=== PATIENT | female | born 1970 | race Caucasian/White ===

== ENCOUNTER 2018-07-23 12:15 | Emergency (ER) | payer BC, MEDICAID ==
[~2018-07-23] VITALS: Ht 162.6 cm; Wt 105.2 kg
[~2018-07-23 12:15] MED LIST: BENZ-51 PO; LITH300T PO; OLAN10TA3 PO; OMEP20 PO; PRED20 PO; SIMV-260 PO
[2018-07-23] MEDS ORDERED: PANT40TA25 PO (12:41)
[2018-07-23] MEDS ORDERED: QUET100T PO (12:41)
[2018-07-23] MEDS ORDERED: BENZ1TAB10 PO (12:41)
[2018-07-23] MEDS ORDERED: LORA1TAB3 PO (12:41)
[2018-07-23] MEDS ORDERED: HALO10 PO (12:41)
[2018-07-23] MEDS ORDERED: PARO10TA89 PO (12:41)
[2018-07-23 12:55] LABS: BASOPHILS % (AUTO) 0.8 % (0.0-2.0); EOSINOPHILS % (AUTO) 1.4 % (1.0-6.0); HEMATOCRIT 35.3 % (36-46); HEMOGLOBIN 12.1 g/dL (12.0-16.0); LYMPHOCYTES % (AUTO) 52.2 % (22.0-44.0); MEAN CORPUSCULAR HEMOGLOBIN 33.1 pg (26.0-34.0); MEAN CORPUSCULAR HGB CONC 34.1 G/dL (31.0-37.0); MEAN CORPUSCULAR VOLUME 97 fL (80-100); MONOCYTES # (AUTO) 0.4 K/uL (0.1-1.0); MONOCYTES % (AUTO) 10.5 % (2.0-9.0); NEUTROPHILS # (AUTO) 1.3 K/uL (1.8-7.7); NEUTROPHILS % (AUTO) 35.1 % (40.0-70.0); PLATELET COUNT (AUTO) 191 K/uL (150-450); RED BLOOD CELL COUNT(AUTO) 3.65 MIL/uL (4.00-5.20); RED CELL DISTRIBUTION WIDTH 13.8 % (11.5-14.5)
[2018-07-23 13:06] LABS: ANION GAP 4 mmol/L (8-16); CALCIUM, TOTAL 8.2 mg/dL (8.8-10.5); CARBON DIOXIDE 32 mmol/L (22-29); CHLORIDE 101 mmol/L (98-107); CREATININE 0.77 mg/dL (0.60-1.30); GLOMERULAR FILTR. RATE CALC > 60 mL/min (>60); GLUCOSE,RANDOM 90 mg/dL (70-110); POTASSIUM 4.6 mmol/L (3.5-5.1); SODIUM SERUM 137 mmol/L (136-145); UREA NITROGEN, BLOOD 12 mg/dL (7-18)
[2018-07-23 13:14] LABS: ALANINE AMINOTRANSFERASE 18 U/L (12-78); ALBUMIN 3.2 g/dL (3.4-5.0); ALKALINE PHOSPHATASE 68 U/L (46-116); ASPARTATE AMINOTRANSFERASE 12 U/L (15-37); BILIRUBIN,TOTAL 0.2 mg/dL (0.1-1.0); TOTAL PROTEIN, SERUM 6.8 g/dL (6.4-8.2)
[2018-07-23 15:18] VITALS: BP 126/72
== END 2018-07-23 15:25 | disposition home or self-care (01) ==
LOC: EMS 12:16
DX: F20.9 Schizophrenia, unspecified (principal); F31.9 Bipolar disorder, unspecified; F17.210 Nicotine dependence, cigarettes, uncomplicated; Z88.8 Allergy status to other drugs, medicaments and biological substances
CPT/HCPCS: 36415; 80053; 85025; 99284; 99406; G0480

== ENCOUNTER 2018-12-15 13:01 | Inpatient (IN) | payer BC, MEDICARE ==
[~2018-12-15] VITALS: Ht 162.6 cm; Wt 107.5 kg
[~2018-12-15 13:01] MED LIST changes: -BENZ-51 PO; +BENZ1TAB10 PO; +HALO10 PO; -LITH300T PO; +LORA1TAB3 PO; -OLAN10TA3 PO; -OMEP20 PO; +PANT40TA25 PO; +PARO10TA89 PO; -PRED20 PO; +QUET100T PO; -SIMV-260 PO
[2018-12-15 14:40] LABS: BASOPHILS % (AUTO) 0.5 % (0.0-2.0); EOSINOPHILS % (AUTO) 1.9 % (1.0-6.0); HEMATOCRIT 37.9 % (36-46); HEMOGLOBIN 12.6 g/dL (12.0-16.0); LYMPHOCYTES # (AUTO) 1.9 K/uL (1.0-4.8); LYMPHOCYTES % (AUTO) 52.5 % (22.0-44.0); MEAN CORPUSCULAR HEMOGLOBIN 33.3 pg (26.0-34.0); MEAN CORPUSCULAR HGB CONC 33.3 G/dL (31.0-37.0); MEAN CORPUSCULAR VOLUME 100 fL (80-100); MONOCYTES # (AUTO) 0.4 K/uL (0.1-1.0); NEUTROPHILS # (AUTO) 1.2 K/uL (1.8-7.7); NEUTROPHILS % (AUTO) 35.1 % (40.0-70.0); PLATELET COUNT (AUTO) 207 K/uL (150-450); RED CELL DISTRIBUTION WIDTH 13.2 % (11.5-14.5)
[2018-12-15 14:46] LABS: ANION GAP 5 mmol/L (8-16); CALCIUM, TOTAL 8.8 mg/dL (8.8-10.5); CARBON DIOXIDE 31 mmol/L (22-29); CHLORIDE 103 mmol/L (98-107); CREATININE 0.82 mg/dL (0.60-1.30); GLOMERULAR FILTR. RATE CALC > 60 mL/min (>60); GLUCOSE,RANDOM 104 mg/dL (70-110); POTASSIUM 4.6 mmol/L (3.5-5.1); SODIUM SERUM 139 mmol/L (136-145); UREA NITROGEN, BLOOD 16 mg/dL (7-18)
[2018-12-15 14:53] LABS: ALANINE AMINOTRANSFERASE 17 U/L (12-78); ALBUMIN 3.4 g/dL (3.4-5.0); ALKALINE PHOSPHATASE 64 U/L (46-116); ASPARTATE AMINOTRANSFERASE 14 U/L (15-37); BILIRUBIN,TOTAL 0.2 mg/dL (0.1-1.0); TOTAL PROTEIN, SERUM 7.1 g/dL (6.4-8.2)
[2018-12-15] MEDS ORDERED: LORazepam 2 MG TABLET PO ONE (16:15)
[2018-12-15] MEDS ORDERED: HALOPERIDOL 5 MG TABLET PO ONE (16:15)
[2018-12-15] MEDS ORDERED: ZOLPIDEM TARTRATE 10 MG TABLET PO PRN (17:00)
[2018-12-15] MEDS ORDERED: IBUPROFEN 400 MG TABLET PO PRN ×2 (17:15→20:30)
[2018-12-15] MEDS ORDERED: ACETAMINOPHEN 325 MG TABLET PO PRN ×2 (17:15→20:30)
[2018-12-15 17:28] LABS: AMPHET/METH SCREEN,URINE NEGATIVE (NEGATIVE); BARBITURATE SCREEN, URINE NEGATIVE (NEGATIVE); BENZODIAZEPINES SCREEN,URINE NEGATIVE (NEGATIVE); CANNABINOID SCREEN,URINE NEGATIVE (NEGATIVE); COCAINE SCREEN,URINE NEGATIVE (NEGATIVE); METHADONE SCREEN, URINE NEGATIVE (NEGATIVE); OPIATE SCREEN,URINE NEGATIVE (NEGATIVE); PHENCYCLIDINE SCREEN,URINE NEGATIVE (NEGATIVE)
[2018-12-15] MEDS ORDERED: MAGNESIUM HYDROXIDE SUSPENSION 30 ML UDCUP PO PRN (20:30)
[2018-12-15] MEDS ORDERED: LOPERAMIDE HCL 2 MG CAPSULE PO PRN (20:30)
[2018-12-15] MEDS ORDERED: PETROLATUM,WHITE 28 GM JELLY TP PRN (20:30)
[2018-12-15] MEDS ORDERED: CloNIDine HCL 0.1 MG TABLET PO PRN (20:30)
[2018-12-15] MEDS ORDERED: DOCUSATE SODIUM 100 MG CAPSULE PO PRN (20:30)
[2018-12-15 20:39] VITALS: BP 119/78
[2018-12-16 00:31] VITALS: BP 123/81
[2018-12-16] MEDS: NICOTINE 7 MG/24 HOUR PATCH TD SCH (08:10)
[2018-12-16 08:22] VITALS: BP 104/69
[2018-12-16 08:52] LABS: BASOPHILS % (AUTO) 0.8 % (0.0-2.0); EOSINOPHILS % (AUTO) 2.2 % (1.0-6.0); HEMATOCRIT 42.4 % (36-46); HEMOGLOBIN 14.1 g/dL (12.0-16.0); LYMPHOCYTES % (AUTO) 58.1 % (22.0-44.0); MEAN CORPUSCULAR HEMOGLOBIN 33.2 pg (26.0-34.0); MEAN CORPUSCULAR HGB CONC 33.2 G/dL (31.0-37.0); MEAN CORPUSCULAR VOLUME 100 fL (80-100); MONOCYTES # (AUTO) 0.3 K/uL (0.1-1.0); MONOCYTES % (AUTO) 9.4 % (2.0-9.0); NEUTROPHILS % (AUTO) 29.5 % (40.0-70.0); PLATELET COUNT (AUTO) 243 K/uL (150-450); RED BLOOD CELL COUNT(AUTO) 4.25 MIL/uL (4.00-5.20); RED CELL DISTRIBUTION WIDTH 12.9 % (11.5-14.5)
[2018-12-16 09:29] LABS: ALANINE AMINOTRANSFERASE 20 U/L (12-78); ALBUMIN 3.6 g/dL (3.4-5.0); ALKALINE PHOSPHATASE 69 U/L (46-116); ANION GAP 8 mmol/L (8-16); ASPARTATE AMINOTRANSFERASE 16 U/L (15-37); BILIRUBIN,TOTAL 0.3 mg/dL (0.1-1.0); CALCIUM, TOTAL 9.1 mg/dL (8.8-10.5); CARBON DIOXIDE 30 mmol/L (22-29); CHLORIDE 101 mmol/L (98-107); CHOL/HDL RATIO 6.4 (3.9-5.7); CHOLESTEROL 281 mg/dL (131-200); CREATININE 0.78 mg/dL (0.60-1.30); GLOMERULAR FILTR. RATE CALC > 60 mL/min (>60); GLUCOSE,RANDOM 129 mg/dL (70-110); HDL CHOLESTEROL 44 mg/dL (40-60); LDL CHOL (CALC.) 182 mg/dL (0-130); POTASSIUM 4.5 mmol/L (3.5-5.1); SODIUM SERUM 139 mmol/L (136-145); THYROID STIMULATING HORMONE 1.94 uIU/mL (0.36-3.74); TOTAL PROTEIN, SERUM 7.8 g/dL (6.4-8.2); TRIGLYCERIDES 277 mg/dL (15-150); UREA NITROGEN, BLOOD 14 mg/dL (7-18)
[2018-12-16 09:44] LABS: HEMOGLOBIN A1C 5.5 % (4.5-6.2)
[2018-12-16 16:35] VITALS: BP 118/83
[2018-12-16] MEDS: BENZTROPINE MESYLATE 2 MG TABLET PO SCH (20:46)
[2018-12-16] MEDS: HALOPERIDOL 10 MG TABLET PO SCH (20:46)
[2018-12-17 03:26] VITALS: BP 110/73
[2018-12-17 08:17] VITALS: BP 142/75
[2018-12-17] MEDS: NICOTINE 7 MG/24 HOUR PATCH TD SCH (08:27)
[2018-12-17] MEDS: OMEGA-3/DHA/EPA/FISH OIL 1,000 MG CAPSULE PO SCH (10:30)
[2018-12-17 12:04] VITALS: BP 113/68
[2018-12-17] MEDS: LORazepam 2 MG TABLET PO PRN (12:40)
[2018-12-17] MEDS: HALOPERIDOL 5 MG TABLET PO PRN (13:16)
[2018-12-17 16:16] VITALS: BP 117/73
[2018-12-17] MEDS: HALOPERIDOL 10 MG TABLET PO SCH (20:20)
[2018-12-17] MEDS: BENZTROPINE MESYLATE 2 MG TABLET PO SCH (20:20)
[2018-12-18 04:27] VITALS: BP 119/67
[2018-12-18] MEDS: HALOPERIDOL 5 MG TABLET PO PRN (08:18)
[2018-12-18] MEDS: NICOTINE 7 MG/24 HOUR PATCH TD SCH (08:18)
[2018-12-18 08:24] VITALS: BP 95/72
[2018-12-18] MEDS: OMEGA-3/DHA/EPA/FISH OIL 1,000 MG CAPSULE PO SCH (08:24)
[2018-12-18 10:12] VITALS: BP 107/62
[2018-12-18] MEDS: LORazepam 2 MG TABLET PO PRN ×2 (14:18→19:52)
[2018-12-18 16:17] VITALS: BP 108/62
[2018-12-18] MEDS: MAG HYDROX/AL HYDROX/SIMETH ES 30 ML SUSPENSION UDCUP PO PRN (18:37)
[2018-12-18] MEDS: BENZTROPINE MESYLATE 2 MG TABLET PO SCH (20:24)
[2018-12-18] MEDS: SIMVASTATIN 10 MG TABLET PO SCH (20:24)
[2018-12-18] MEDS: HALOPERIDOL 10 MG TABLET PO SCH (20:24)
[2018-12-19 07:05] VITALS: BP 107/56
[2018-12-19 08:08] VITALS: BP 113/65
[2018-12-19] MEDS: MAG HYDROX/AL HYDROX/SIMETH ES 30 ML SUSPENSION UDCUP PO PRN (08:18)
[2018-12-19] MEDS: NICOTINE 7 MG/24 HOUR PATCH TD SCH (08:19)
[2018-12-19] MEDS: OMEGA-3/DHA/EPA/FISH OIL 1,000 MG CAPSULE PO SCH (08:19)
[2018-12-19] MEDS: HALOPERIDOL 5 MG TABLET PO PRN (11:40)
[2018-12-19 16:06] VITALS: BP 108/66
[2018-12-19] MEDS: BENZTROPINE MESYLATE 2 MG TABLET PO SCH (20:04)
[2018-12-19] MEDS: HALOPERIDOL 10 MG TABLET PO SCH (20:04)
[2018-12-19] MEDS: SIMVASTATIN 10 MG TABLET PO SCH (20:05)
[2018-12-19] MEDS: LORazepam 2 MG TABLET PO PRN (20:42)
[2018-12-20 02:38] VITALS: BP 127/63
[2018-12-20 08:00] VITALS: BP 118/79
[2018-12-20] MEDS: NICOTINE 7 MG/24 HOUR PATCH TD SCH (08:31)
[2018-12-20] MEDS: OMEGA-3/DHA/EPA/FISH OIL 1,000 MG CAPSULE PO SCH (08:31)
[2018-12-20] MEDS: HALOPERIDOL 5 MG TABLET PO PRN (08:43)
[2018-12-20] MEDS: LORazepam 2 MG TABLET PO PRN ×2 (08:44→16:50)
[2018-12-20 16:10] VITALS: BP 118/74
[2018-12-20] MEDS: HALOPERIDOL 10 MG TABLET PO SCH (20:40)
[2018-12-20] MEDS: SIMVASTATIN 10 MG TABLET PO SCH (20:40)
[2018-12-20] MEDS: BENZTROPINE MESYLATE 2 MG TABLET PO SCH (20:40)
[2018-12-21 02:17] VITALS: BP 144/78
[2018-12-21 05:13] VITALS: BP 120/70
[2018-12-21] MEDS: MAG HYDROX/AL HYDROX/SIMETH ES 30 ML SUSPENSION UDCUP PO PRN (08:27)
[2018-12-21] MEDS: OMEGA-3/DHA/EPA/FISH OIL 1,000 MG CAPSULE PO SCH (08:29)
[2018-12-21] MEDS: NICOTINE 7 MG/24 HOUR PATCH TD SCH (08:29)
[2018-12-21 08:30] VITALS: BP 129/67
[2018-12-21] MEDS ORDERED: OMEG-135 PO (08:41)
[2018-12-21] MEDS ORDERED: BENZ2TAB10 PO (08:41)
[2018-12-21] MEDS ORDERED: SIMV-259 PO (08:41)
[2018-12-21] MEDS ORDERED: HALO10 PO (08:41)
== END 2018-12-21 10:40 | DRG 885 ==
LOC: EMS 13:04 → B2X 19:20
PROVIDERS: ADMIT Psychiatry & Neurology Psychiatry; ATTEND Psychiatry & Neurology Psychiatry
DX: F20.0 Paranoid schizophrenia (principal); R45.851 Suicidal ideations; E78.5 Hyperlipidemia, unspecified; D72.819 Decreased white blood cell count, unspecified; D64.9 Anemia, unspecified; F31.9 Bipolar disorder, unspecified; I11.0 Hypertensive heart disease with heart failure; I50.9 Heart failure, unspecified; J44.9 Chronic obstructive pulmonary disease, unspecified; K21.9 Gastro-esophageal reflux disease without esophagitis; M19.90 Unspecified osteoarthritis, unspecified site; R45.850 Homicidal ideations; F17.210 Nicotine dependence, cigarettes, uncomplicated; Z88.8 Allergy status to other drugs, medicaments and biological substances
CPT/HCPCS: 83036; 84443; G0480

== ENCOUNTER 2019-05-26 17:06 | Emergency (ER) | payer BC ==
[~2019-05-26 17:06] MED LIST changes: -BENZ1TAB10 PO; +BENZ2TAB10 PO; -LORA1TAB3 PO; +OMEG-135 PO; -PANT40TA25 PO; -PARO10TA89 PO; -QUET100T PO; +SIMV-259 PO
== END 2019-05-26 17:29 | disposition left against medical advice (07) ==
LOC: EMS 17:07
DX: F32.9 Major depressive disorder, single episode, unspecified (principal); Z53.21 Procedure and treatment not carried out due to patient leaving prior to being seen by health care provider

== ENCOUNTER 2019-11-02 17:36 | Emergency (ER) | payer BC, MEDICAID ==
[~2019-11-02] VITALS: Ht 162.6 cm; Wt 109.1 kg
[2019-11-02] MEDS ORDERED: ARIP2 PO (17:44)
[2019-11-02] MEDS ORDERED: RISP.5 PO (17:44)
[2019-11-02] MEDS ORDERED: ONDANSETRON HCL 4 MG/2 ML VIAL IVP ONE (18:15)
[2019-11-02] MEDS ORDERED: ACETAMINOPHEN 500 MG TABLET PO ONE (18:15)
[2019-11-02] MEDS ORDERED: SODIUM CHLORIDE 0.9% 1,000 ML IV ONE (18:15)
[2019-11-02 18:39] LABS: BASOPHILS % (AUTO) 1.1 % (0.0-2.0); EOSINOPHILS % (AUTO) 2.2 % (1.0-6.0); HEMATOCRIT 39.8 % (36-46); HEMOGLOBIN 13.4 g/dL (12.0-16.0); LYMPHOCYTES # (AUTO) 2.3 K/uL (1.0-4.8); LYMPHOCYTES % (AUTO) 54.3 % (22.0-44.0); MEAN CORPUSCULAR HEMOGLOBIN 33.5 pg (26.0-34.0); MEAN CORPUSCULAR HGB CONC 33.6 G/dL (31.0-37.0); MEAN CORPUSCULAR VOLUME 100 fL (80-100); MONOCYTES # (AUTO) 0.4 K/uL (0.1-1.0); MONOCYTES % (AUTO) 9.9 % (2.0-9.0); NEUTROPHILS # (AUTO) 1.4 K/uL (1.8-7.7); NEUTROPHILS % (AUTO) 32.5 % (40.0-70.0); PLATELET COUNT (AUTO) 215 K/uL (150-450); RED CELL DISTRIBUTION WIDTH 14.1 % (11.5-14.5)
[2019-11-02 18:49] LABS: ANION GAP 8 mmol/L (8-16); CALCIUM, TOTAL 8.7 mg/dL (8.8-10.5); CARBON DIOXIDE 28 mmol/L (22-29); CHLORIDE 102 mmol/L (98-107); CREATININE 0.83 mg/dL (0.60-1.30); GLOMERULAR FILTR. RATE CALC > 60 mL/min (>60); GLUCOSE,RANDOM 112 mg/dL (70-110); POTASSIUM 3.8 mmol/L (3.5-5.1); SODIUM SERUM 138 mmol/L (136-145); UREA NITROGEN, BLOOD 9 mg/dL (7-18)
[2019-11-02 19:01] LABS: ALANINE AMINOTRANSFERASE 40 U/L (12-78); ALKALINE PHOSPHATASE 71 U/L (46-116); ASPARTATE AMINOTRANSFERASE 22 U/L (15-37); BILIRUBIN,TOTAL 0.2 mg/dL (0.1-1.0); HCG,QUANTITATIVE 1 mIU/mL (0-6); TOTAL PROTEIN, SERUM 6.7 g/dL (6.4-8.2)
[2019-11-02] MEDS ORDERED: ONDANSETRON HCL 4 MG TABLET PO ONE (19:45)
[2019-11-02] MEDS ORDERED: AMOX TR/POT CLAV 875 MG/125 MG TABLET PO ONE (19:45)
[2019-11-02 20:23] VITALS: BP 130/78
== END 2019-11-02 21:05 | disposition home or self-care (01) ==
LOC: EMS 17:36
DX: J32.9 Chronic sinusitis, unspecified (principal); E78.00 Pure hypercholesterolemia, unspecified; J45.909 Unspecified asthma, uncomplicated; F31.9 Bipolar disorder, unspecified; F20.9 Schizophrenia, unspecified; F17.210 Nicotine dependence, cigarettes, uncomplicated; Z88.8 Allergy status to other drugs, medicaments and biological substances; Z79.899 Other long term (current) drug therapy
CPT/HCPCS: 36415; 70450; 71045; 80053; 82962; 84702; 85025; 99285; Q0162

== ENCOUNTER 2019-11-20 08:59 | Emergency (ER) | payer BC, MEDICAID ==
[~2019-11-20] VITALS: Ht 162.6 cm; Wt 113.6 kg
[~2019-11-20 08:59] MED LIST changes: +ARIP2 PO; +RISP.5 PO
[2019-11-20] MEDS ORDERED: DIVA125T32 PO (09:05)
[2019-11-20] MEDS ORDERED: GABA-529 PO (09:05)
[2019-11-20 11:00] LABS: GLUCOMETER DEV NAME(LOC) AHU.; GLUCOSE,POINT OF CARE 96 MG/DL (70-110)
[2019-11-20 13:45] LABS: BASOPHILS % (AUTO) 0.8 % (0.0-2.0); EOSINOPHILS % (AUTO) 0.7 % (1.0-6.0); HEMATOCRIT 42.1 % (36-46); HEMOGLOBIN 14.1 g/dL (12.0-16.0); LYMPHOCYTES # (AUTO) 1.5 K/uL (1.0-4.8); LYMPHOCYTES % (AUTO) 37.9 % (22.0-44.0); MEAN CORPUSCULAR HEMOGLOBIN 34.1 pg (26.0-34.0); MEAN CORPUSCULAR HGB CONC 33.6 G/dL (31.0-37.0); MEAN CORPUSCULAR VOLUME 102 fL (80-100); MONOCYTES # (AUTO) 0.5 K/uL (0.1-1.0); MONOCYTES % (AUTO) 11.8 % (2.0-9.0); NEUTROPHILS % (AUTO) 48.8 % (40.0-70.0); PLATELET COUNT (AUTO) 197 K/uL (150-450); RED BLOOD CELL COUNT(AUTO) 4.15 MIL/uL (4.00-5.20); RED CELL DISTRIBUTION WIDTH 14.2 % (11.5-14.5)
[2019-11-20 13:54] LABS: ANION GAP 6 mmol/L (8-16); CALCIUM, TOTAL 8.9 mg/dL (8.8-10.5); CARBON DIOXIDE 28 mmol/L (22-29); CHLORIDE 106 mmol/L (98-107); CREATININE 0.75 mg/dL (0.60-1.30); GLOMERULAR FILTR. RATE CALC > 60 mL/min (>60); GLUCOSE,RANDOM 106 mg/dL (70-110); SODIUM SERUM 140 mmol/L (136-145); UREA NITROGEN, BLOOD 12 mg/dL (7-18)
[2019-11-20 14:05] LABS: ALANINE AMINOTRANSFERASE 55 U/L (12-78); ALBUMIN 3.3 g/dL (3.4-5.0); ALKALINE PHOSPHATASE 68 U/L (46-116); ASPARTATE AMINOTRANSFERASE 38 U/L (15-37); BILIRUBIN,TOTAL 0.3 mg/dL (0.1-1.0); HCG,QUANTITATIVE 1 mIU/mL (0-6); TOTAL PROTEIN, SERUM 6.8 g/dL (6.4-8.2)
[2019-11-20 14:07] LABS: B-TYPE NATRIURETIC PEPTIDE 14 pg/mL (0-100)
[2019-11-20 14:35] VITALS: BP 105/79
== END 2019-11-20 15:14 | disposition home or self-care (01) ==
LOC: EMS 09:01
DX: R42 Dizziness and giddiness (principal); B34.9 Viral infection, unspecified; R55 Syncope and collapse; J45.909 Unspecified asthma, uncomplicated; F31.9 Bipolar disorder, unspecified; E78.00 Pure hypercholesterolemia, unspecified; F20.9 Schizophrenia, unspecified; F17.210 Nicotine dependence, cigarettes, uncomplicated; Z90.89 Acquired absence of other organs; Z88.8 Allergy status to other drugs, medicaments and biological substances
CPT/HCPCS: 93005

== ENCOUNTER 2024-10-21 07:07 | Emergency (ER) | payer BC, MEDICAID, OTHER ==
[~2024-10-21] VITALS: Ht 160 cm; Wt 106.8 kg
[~2024-10-21 07:07] MED LIST changes: -ARIP2 PO; +ARIP2TAB27 PO; -BENZ2TAB10 PO; +BENZ2TAB84 PO; +DIVA125T32 PO; +GABA-1216 PO; -HALO10 PO; +HALO10TA21 PO; -RISP.5 PO; +RISP0.5T39 PO
[2024-10-21 07:13] VITALS: TEMP 98.4
[2024-10-21 08:07] LABS: BASOPHILS % (AUTO) 0.8 % (0.0-2.0); EOSINOPHILS % (AUTO) 1.5 % (1.0-6.0); HEMATOCRIT 42.1 % (36-46); HEMOGLOBIN 14.2 g/dL (12.0-16.0); LYMPHOCYTES # (AUTO) 1.6 K/uL (1.0-4.8); LYMPHOCYTES % (AUTO) 44.7 % (22.0-44.0); MEAN CORPUSCULAR HEMOGLOBIN 33.3 pg (26.0-34.0); MEAN CORPUSCULAR HGB CONC 33.6 G/dL (31.0-37.0); MEAN CORPUSCULAR VOLUME 99 fL (80-100); MONOCYTES # (AUTO) 0.3 K/uL (0.1-1.0); MONOCYTES % (AUTO) 9.3 % (2.0-9.0); NEUTROPHILS # (AUTO) 1.6 K/uL (1.8-7.7); NEUTROPHILS % (AUTO) 43.7 % (40.0-70.0); PLATELET COUNT (AUTO) 215 K/uL (150-450); RED BLOOD CELL COUNT(AUTO) 4.25 MIL/uL (4.00-5.20); WHITE BLOOD COUNT (AUTO) 3.6 K/uL (4.5-11.0)
[2024-10-21 08:08] LABS: RBC MORPHOLOGY COMMENT NORMAL RBC MORPH
[2024-10-21 08:13] LABS: CHLORIDE 106 mmol/L (98-107); POTASSIUM 4.4 mmol/L (3.5-5.1); SODIUM SERUM 142 mmol/L (136-145)
[2024-10-21 08:15] LABS: ANION GAP 6 mmol/L (8-16); CARBON DIOXIDE 30 mmol/L (22-29); CREATININE 0.78 mg/dL (0.60-1.30); GLOMERULAR FILTR. RATE CALC > 60 mL/min (>60); GLUCOSE,RANDOM 106 mg/dL (70-110); UREA NITROGEN, BLOOD 18 mg/dL (7-18)
[2024-10-21] MEDS: OLANZapine 10 MG TABLET PO ONE (08:18)
[2024-10-21] MEDS: LORazepam 2 MG TABLET PO ONE (08:18)
[2024-10-21 08:25] LABS: TROPONIN I-HIGH SENSITIVITY Less Than 4 ng/L (<51)
[2024-10-21 08:38] LABS: ALCOHOL, BLOOD (SERUM) < 3 mg/dL (0-10)
[2024-10-21 08:46] LABS: COVID AG,FIA SOURCE NASAL SWAB
[2024-10-21 09:05] LABS: SARS-COV2 (COVID) ANTIGEN,FIA Negative (Negative)
[2024-10-21] MEDS ORDERED: BENZ-247 PO (09:07)
[2024-10-21] MEDS ORDERED: CHOL100062 PO (09:08)
[2024-10-21] MEDS ORDERED: RISP-32 PO ×2 (09:08→09:09)
[2024-10-21] MEDS ORDERED: POTA-92 PO (09:08)
[2024-10-21] MEDS ORDERED: ARIP5TAB37 PO (09:08)
[2024-10-21] MEDS ORDERED: ESOM40CA66 PO (09:08)
[2024-10-21] MEDS ORDERED: OLAN10TA74 PO (09:08)
[2024-10-21] MEDS ORDERED: ATOR10TA69 PO (09:08)
[2024-10-21] MEDS ORDERED: FURO20TA4 PO (09:08)
[2024-10-21] MEDS ORDERED: LORA1TAB25 PO (09:09)
[2024-10-21 09:15] VITALS: BP 115/65; PULSE 84; RESP 18; O2SAT 98
== END 2024-10-21 09:37 | disposition home or self-care (01) ==
LOC: EMS 07:07
DX: F41.0 Panic disorder [episodic paroxysmal anxiety] (principal); J44.89 Other specified chronic obstructive pulmonary disease; E78.00 Pure hypercholesterolemia, unspecified; F20.9 Schizophrenia, unspecified; F17.210 Nicotine dependence, cigarettes, uncomplicated; Z88.8 Allergy status to other drugs, medicaments and biological substances; Z90.49 Acquired absence of other specified parts of digestive tract; Z98.51 Tubal ligation status; Z79.899 Other long term (current) drug therapy; Z20.822 Contact with and (suspected) exposure to COVID-19
CPT/HCPCS: 99283; 87426; 80048; 84484; 85025; 36415; G0480

== ENCOUNTER 2025-06-25 15:39 | Inpatient (IN) | payer MEDICAID, OTHER ==
[~2025-06-25] VITALS: Ht 162.6 cm; Wt 105.7 kg
[~2025-06-25 15:39] MED LIST changes: -ARIP2TAB27 PO; +ARIP5TAB37 PO; +ATOR10TA69 PO; +BENZ-247 PO; -BENZ2TAB84 PO; +CHOL100062 PO; -DIVA125T32 PO; +ESOM40CA66 PO; +FURO20TA4 PO; -GABA-1216 PO; -HALO10TA21 PO; +LORA1TAB25 PO; +OLAN10TA74 PO; -OMEG-135 PO; +POTA-92 PO; +RISP-32 PO; -RISP0.5T39 PO; -SIMV-259 PO
[2025-06-25 16:02] LABS: COVID AG,FIA SOURCE NASAL SWAB
[2025-06-25 16:07] LABS: PH,URINE DRUG SCREEN 6.5 (5.0-8.0)
[2025-06-25 16:12] LABS: AMPHET/METH SCREEN,URINE NEGATIVE (NEGATIVE); BARBITURATE SCREEN, URINE NEGATIVE (NEGATIVE); CANNABINOID SCREEN,URINE NEGATIVE (NEGATIVE); COCAINE SCREEN,URINE NEGATIVE (NEGATIVE); METHADONE SCREEN, URINE NEGATIVE (NEGATIVE)
[2025-06-25 16:14] LABS: ALCOHOL, URINE DRUG SCREEN NEGATIVE (NEGATIVE)
[2025-06-25 16:14] LABS: PLATELET COUNT (AUTO) 176 K/uL (150-450); RED BLOOD CELL COUNT(AUTO) 4.12 MIL/uL (4.00-5.20); RED CELL DISTRIBUTION WIDTH 13.4 % (11.5-14.5); WHITE BLOOD COUNT (AUTO) 3.6 K/uL (4.5-11.0)
[2025-06-25 16:21] LABS: CALCIUM, TOTAL 8.5 mg/dL (8.8-10.5); CREATININE 0.60 mg/dL (0.60-1.30); GLOMERULAR FILTR. RATE CALC > 60 mL/min (>60); GLUCOSE,RANDOM 106 mg/dL (70-110); SODIUM SERUM 141 mmol/L (136-145); UREA NITROGEN, BLOOD 11 mg/dL (7-18)
[2025-06-25] MEDS: BACITRACIN 0.9 GM PACKET OINTMENT TP ONE (16:28)
[2025-06-25] MEDS: PERTUSS(ACELL),DIPH,TET/PF 0.5 ML SYRINGE [ADULT] IM. ONE (16:29)
[2025-06-25 16:36] LABS: SARS-COV2 (COVID) ANTIGEN,FIA Negative (Negative)
[2025-06-25 16:47] LABS: TROPONIN I-HIGH SENSITIVITY 4 ng/L (<51)
[2025-06-25 19:26] VITALS: O2SAT 98
[2025-06-25] MEDS: ZOLPIDEM TARTRATE 10 MG TABLET PO PRN (22:26)
[2025-06-26 08:14] VITALS: BP 115/75; PULSE 70; RESP 18; TEMP 97.3; O2SAT 95
[2025-06-26] MEDS ORDERED: BENZOCAINE/MENTHOL [CEPACOL] LOZENGE PO PRN (09:30)
[2025-06-26] MEDS ORDERED: PETROLATUM,WHITE 28 GM JELLY TP PRN (09:30)
[2025-06-26] MEDS ORDERED: LOPERAMIDE HCL 2 MG CAPSULE PO PRN (09:30)
[2025-06-26] MEDS ORDERED: MAG HYDROX/ALUMINUM HYD/SIMETH ES 30 ML SUSPENSION UDCUP PO PRN (09:30)
[2025-06-26] MEDS ORDERED: ONDANSETRON 4 MG TABLET PO PRN (09:30)
[2025-06-26] MEDS ORDERED: OMEPRAZOLE 20 MG CAPSULE PO PRN (09:30)
[2025-06-26] MEDS ORDERED: MAGNESIUM HYDROXIDE SUSPENSION 30 ML UDCUP PO PRN (09:30)
[2025-06-26] MEDS ORDERED: DOCUSATE SODIUM 100 MG CAPSULE PO PRN (09:30)
[2025-06-26] MEDS ORDERED: BACITRACIN 28 GM OINTMENT TP PRN (09:30)
[2025-06-26] MEDS ORDERED: ALBUTEROL SULFATE HFA 90 MCG/PUFF 8 GM INHALER IH PRN (09:30)
[2025-06-26] MEDS: DIVALPROEX SODIUM 250 MG DR TABLET PO SCH (17:53)
[2025-06-26] MEDS: NICOTINE 14 MG/24 HOUR PATCH TD SCH (19:26)
[2025-06-26 20:21] VITALS: BP 136/85; PULSE 86; RESP 18; TEMP 98.1; O2SAT 98
[2025-06-27 03:07] LABS: HEPATITIS C AB (EIA) Non Reactive (Non Reactive)
[2025-06-27] MEDS: ATORVASTATIN CALCIUM 10 MG TABLET PO SCH (08:22)
[2025-06-27] MEDS: FUROSEMIDE 20 MG TABLET PO SCH (08:22)
[2025-06-27 08:31] VITALS: BP 124/74; PULSE 107; RESP 17; TEMP 98.4; O2SAT 95
[2025-06-27 14:59] VITALS: RESP 17
[2025-06-27] MEDS: ACETAMINOPHEN 325 MG TABLET PO PRN (14:59)
[2025-06-27 15:59] VITALS: RESP 17
[2025-06-27 16:19] LABS: C.DIFF GDH ANTIGEN, Stool Negative (Negative); C.DIFF TOXINS A&B, Stool Negative (Negative)
[2025-06-27 20:58] VITALS: BP 128/68; PULSE 75; RESP 18; TEMP 97.9
[2025-06-27] MEDS: IBUPROFEN 600 MG TABLET PO PRN (23:04)
[2025-06-27 23:05] VITALS: BP 118/95; PULSE 112; RESP 18; O2SAT 97
[2025-06-28 00:05] VITALS: RESP 18
[2025-06-28 08:24] VITALS: BP 123/78; PULSE 118; RESP 17; TEMP 97.3; O2SAT 95
[2025-06-28 16:12] VITALS: RESP 17
[2025-06-28 17:12] VITALS: RESP 18
[2025-06-28 20:23] VITALS: BP 112/76; PULSE 117; RESP 17; TEMP 98.3; O2SAT 98
[2025-06-29 08:23] VITALS: BP 109/63; PULSE 85; RESP 16; TEMP 97.6; O2SAT 98
[2025-06-29] MEDS ORDERED: DIVA-111 PO (17:54)
[2025-06-29 20:13] VITALS: BP 138/77; PULSE 90; RESP 16; TEMP 98.6; O2SAT 99
[2025-06-30 08:24] VITALS: BP 131/116; PULSE 110; RESP 18; TEMP 98.2; O2SAT 96
== END 2025-06-30 11:38 | disposition home or self-care (01) | DRG 750 ==
LOC: EMS 15:39 → B2S 20:41
PROVIDERS: ADMIT Psychiatry & Neurology Psychiatry; ATTEND Psychiatry & Neurology Psychiatry
DX: F20.9 Schizophrenia, unspecified (principal); R45.851 Suicidal ideations; E66.9 Obesity, unspecified; F32.9 Major depressive disorder, single episode, unspecified; I10 Essential (primary) hypertension; J44.89 Other specified chronic obstructive pulmonary disease; Z68.41 Body mass index [BMI] 40.0-44.9, adult; Z20.822 Contact with and (suspected) exposure to COVID-19; E78.00 Pure hypercholesterolemia, unspecified; F41.9 Anxiety disorder, unspecified; G47.00 Insomnia, unspecified; K21.9 Gastro-esophageal reflux disease without esophagitis; K59.00 Constipation, unspecified; Z87.59 Personal history of other complications of pregnancy, childbirth and the puerperium; Z87.891 Personal history of nicotine dependence
CPT/HCPCS: 80048; 80307; 84484; 85025; 86803; 87081; 87177; 87324; 87340; 87449; 90715; 93005; 99285; G0480